=== PATIENT | male | born 1980 | race African-American/Black ===

== ENCOUNTER → 2019-05-15 | Outpatient (CLI) | payer OTHER | END | disposition home or self-care (01) | LOC: LAB 05:28 | DX: Z02.83 Encounter for blood-alcohol and blood-drug test (principal) | CPT/HCPCS: 36415 ==

== ENCOUNTER 2020-02-09 08:20 | Emergency (ER) | payer SELFPAY ==
[~2020-02-09] VITALS: Ht 185.4 cm; Wt 109.0 kg
[2020-02-09] MEDS ORDERED: NALOXONE 2 MG/2 ML DISP.SYRIN. ONE (08:31)
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
[2020-02-09] MEDS ORDERED: NALOXONE 2 MG/2 ML DISP.SYRIN. IV ONE (08:45)
[2020-02-09 08:52] LABS: BARBITURATES NEG (NEG); BENZODIAZEPINES NEG (NEG); CANNABINOIDS NEG (NEG); COCAINE NEG (NEG); METHADONE NEG (NEG); OPIATES NEG (NEG); PHENCYCLIDINE NEG (NEG)
[2020-02-09] MEDS ORDERED: DIPH,PERTUSS(ACELL),TET VAC/PF 0.5 ML SYRINGE. VAX IM ONE (09:00)
[2020-02-09 09:01] LABS: BASO # 0.1 x10^3/uL (0.0-0.2); BASO % 1 % (0-3); EOS # 0.4 x10^3/uL (0.0-0.7); EOS % 4 % (0-3); HEMATOCRIT 47.3 % (39.0-53.0); HEMOGLOBIN 16.5 g/dL (13.0-17.5); LYMPH % 49 % (24-48); MEAN CORPUSCULAR HEMOGLOBIN 33 pg (25-35); MEAN CORPUSCULAR HGB CONC 35 g/dL (31-37); MEAN CORPUSCULAR VOLUME 95 fL (79-100); MONO # 0.7 x10^3/uL (0.0-1.1); MONO % 9 % (0-9); NEUT # 2.9 x10^3/uL (1.8-7.7); NEUT % 36 % (31-73); PLATELET COUNT 297 x10^3/uL (140-400); RED BLOOD COUNT 5.01 x10^6/uL (4.30-5.70); RED CELL DISTRIBUTION WIDTH 12.9 % (11.5-14.5); WHITE BLOOD COUNT 8.1 x10^3/uL (4.0-11.0)
[2020-02-09 09:06] LABS: CALCIUM 8.7 mg/dL (8.5-10.1); CREATININE 1.4 mg/dL (0.7-1.3); POTASSIUM 3.8 mmol/L (3.5-5.1)
[2020-02-09 09:06] LABS: AMPHETAMINE/METHAMPHETAMINE NEG (NEG)
[2020-02-09 09:12] LABS: ALBUMIN 4.3 g/dL (3.4-5.0); ALBUMIN/GLOBULIN RATIO 1.1 (1.0-1.7); TOTAL BILIRUBIN 0.3 mg/dL (0.2-1.0); TOTAL PROTEIN 8.3 g/dL (6.4-8.2)
[2020-02-09] MEDS ORDERED: AMMONIA AROMATIC 15% INHALANT AMPUL. INH ONE (09:30)
[2020-02-09] MEDS ORDERED: IV NORMAL SALINE 1000ML BAG 1,000 ML IV ONE (09:30)
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
[2020-02-09 11:11] VITALS: BP 137/68
--- NOTE | 2020-02-09 11:23 | EKG ---
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
== END 2020-02-09 12:14 | disposition home or self-care (01) ==
LOC: ER 08:20
DX: S60.411A Abrasion of left index finger, initial encounter (principal); S21.131A Puncture wound without foreign body of right front wall of thorax without penetration into thoracic cavity, initial encounter; R41.82 Altered mental status, unspecified; F10.229 Alcohol dependence with intoxication, unspecified; Y90.7 Blood alcohol level of 200-239 mg/100 ml; Y08.89XA Assault by other specified means, initial encounter; Y93.89 Activity, other specified; Y92.89 Other specified places as the place of occurrence of the external cause; Y99.8 Other external cause status
CPT/HCPCS: 36415; 70450; 72125; 80053; 80307; 85025; 90471; 90715; 93005; 96361; 96374; 99285; G0480; J2310; J7030